=== PATIENT | female | born 1955 | race Caucasian/White ===

== ENCOUNTER 2018-04-05 03:10 | Inpatient (IN) | payer OTHER ==
[~2018-04-05] VITALS: Ht 157.4 cm; Wt 87.3 kg
--- NOTE | ~2018-04-05 | EKG ---
[place], [place] ELECTROCARDIOGRAM REPORT NAME: RISHI FALL UNIT #: [id number] ROOM: 411 DOCTOR: CRISTIANA DRAFT REPORT BIRTHDATE: [birth year] [facility] Test Date: 2018-04-05 Test Time: 03:40:01 Pat Name: RISHI FALL Department: Room: 411 Gender: F Chemist Pharmaceutical: Jonathan Pinzon : 1955 Requested By: KENYON MAHAJAN Order Number: [id number] Reading MD: Hi Cavanaugh MD Measurements Intervals [place] Rate: 76 P: 64 NM: 167 QRS: 43 QRSD: 103 T: 57 QT: 389 QTc: 438 Interpretive Statements Sinus rhythm Probable left atrial enlargement Electronically Signed On 04-05-2018 12:05:23 PST by Hi Cavanaugh MD CM:EKGRPT:ELECTROCARDIOGRAM REPORT [id number] KENYON MAHAJAN MD EPIPHANY DRAFT REPORT KENYON MAHAJAN MD
[2018-04-05 03:13] VITALS: BP 127/73
[2018-04-05 03:55] LABS: BASO # 0.1 10*3/uL (0.0-0.1); BASO % 0.5 % (0.0-1.0); EOS # 0.2 10*3/uL (0.0-0.4); EOS % 1.5 % (1.0-4.0); HEMATOCRIT 44.5 % (37.0-47.0); HEMOGLOBIN 14.1 g/dl (12.0-16.0); LYMPH # 1.9 10*3/uL (1.3-4.4); LYMPH % 14.4 % (27.0-41.0); MEAN CELL VOLUME 90.8 fl (81.0-99.0); MEAN CORPUSCULAR HGB 28.8 pg (27.0-31.0); MEAN CORPUSCULAR HGB CONC 31.7 g/dl (33.0-37.0); MEAN PLATELET VOLUME 10.8 fl (9.6-12.3); MONO # 0.7 10*3/uL (0.1-1.0); MONO % 5.4 % (3.0-9.0); NEUT # 10.1 10*3/uL (2.3-7.9); NEUT % 77.7 % (47.0-73.0); PLATELET COUNT AUTOMATED 237 10*3/uL (130-400); RED CELL DISTRI WIDTH 13.8 % (0-14.5)
[2018-04-05 04:06] LABS: ACT PARTIAL THROMBO TIME 20.8 SECONDS (20.8-31.5); INTERNATIONAL NORM RATIO 0.9 (2.0-3.5)
[2018-04-05 04:13] LABS: BILIRUBIN NEGATIVE (NEGATIVE); BLOOD NEGATIVE (NEGATIVE); CLARITY CLEAR (CLEAR); COLOR YELLOW (YELLOW); GLUCOSE NEGATIVE (NEGATIVE); KETONE NEGATIVE (NEGATIVE); LEUKO ESTERASE 1+ (NEGATIVE); NITRITE NEGATIVE (NEGATIVE); SPECIFIC GRAVITY <= 1.005 (1.005-1.030); UROBILINOGEN 0.2 E.U./dl (0.2-1.0)
[2018-04-05 04:21] LABS: ALBUMIN 3.7 gm/dl (3.1-4.5); ALKALINE PHOSPHATASE 106 U/L (45-117); BUN 22 mg/dl (7-24); CHLORIDE 101 mmol/L (98-107); CREATININE 0.84 mg/dL (0.55-1.02); LIPASE 90 U/L (73-393); POTASSIUM 3.8 mmol/L (3.5-5.1); SGOT/AST 18 IU/L (3-35); SGPT/ALT 32 U/L (12-78); SODIUM 137 mmol/L (136-145)
[2018-04-05 04:22] LABS: TROPONIN I < 0.015 ng/ml (<0.045)
[2018-04-05 05:35] VITALS: BP 154/87
--- NOTE | 2018-04-05 05:35 | NUR ---
A 62, admitted to , under the services of DAVINA Flores DO with a diagnosis of SYNCOPY. Chief complaint is C/O NOT FEELING RIGHT, FELT HOT, UNSURE OF WHAT HAPPENED- FOUND ON FLOOR. Patient arrived via CART from ER. Monitor applied. Initial assessment completed. Vital signs taken and recorded. DAVINA FLORES DO notified of admission to the unit. Orders received. See assessment for past medical history, medications and allergies. Patient and/or family oriented to unit. [facility] visitation policy reviewed. Clothing/patient valuable form completed. JULIET DODGE
[2018-04-05] MEDS ORDERED: SINGULAIR10 M1 PO (06:38)
[2018-04-05] MEDS ORDERED: [UNRECOGNIZED DRUG - REMARK] PO (06:39)
[2018-04-05] MEDS ORDERED: BREO ELLIPTA 11 EACH INH (06:41)
[2018-04-05] MEDS ORDERED: SPIRIVA18 MCG PO (06:42)
[2018-04-05] MEDS ORDERED: 24 HOUR ALLER15.8 ML NAS (06:45)
--- NOTE | 2018-04-05 07:51 | NUR ---
24 HR chart check completed.
[2018-04-05 08:00] VITALS: BP 130/60
--- NOTE | 2018-04-05 08:00 | NUR ---
Patient resting quietly with no c/o discomfort. Respirations easy and regular. Vital signs stable. No overt distress. GIOVANNY REIS
--- NOTE | 2018-04-05 11:36 | NUR ---
PHYSICAL THERAPY PT EVAL COMPLETED TODAY: FULL EVALUALTION TO FOLLOW: RECOMMEND PT WHILE HERE TO ADDRESS DECREASED STRENGTH, BALANCE AND GAIT. PT EVAL IS MODERATE COMPLEXITY BASED ON CHART REVIEW, TEST RESULTS AND EVLAUATION: 53221. D/C RECOMMENDATIONS ARE HOME WITH HOME HEALTH ON D/C. THANK YOU FOR REFERRAL ABIMAEL BENÍTEZ PT
[2018-04-05 12:00] VITALS: BP 143/86
[2018-04-05 16:00] VITALS: BP 126/73
[2018-04-05] MEDS ORDERED: OXYGEN NAS (16:43)
[2018-04-05] MEDS ORDERED: PROAIR HFA8.5 GM INH (16:44)
--- NOTE | 2018-04-05 19:23 | NUR ---
SITTING UP IN BED WATCHING TV. DENIES ANY NEEDS OR CONCERNS AT THIS TIME. BED IS IN LOWEST POSTIION WITH WHEELS LOCKED. CALL LIGHT IS WITHIN REACH. ENCOURAGED TO USE CALL LIGHT FOR NEEDS.
[2018-04-05 20:00] VITALS: BP 126/73
--- NOTE | 2018-04-05 21:00 | NUR ---
PRN RESTORIL GIVEN FOR COMPLAINTS OF INSOMNIA. WILL EVALUATE EFFECTIVENESS.
--- NOTE | 2018-04-05 22:06 | NUR ---
PRN RESTORIL APPEARS TO BE EFFECTIVE. RESTING IN BED WITH EYES CLOSED. RESPIRATIONS ARE EASY AND REGULAR. NO DISTRESS IS NOTED.
[2018-04-06] VITALS: BP 141/88
--- NOTE | 2018-04-06 01:14 | NUR ---
RESTING IN BED WITH EYES CLOSED. RESPIRATIONS ARE EASY AND REGULAR. NO DISTRESS IS NOTED. CALL LIGHT IS WITHIN REACH.
[2018-04-06 05:40] LABS: BUN 16 mg/dl (7-24); CHLORIDE 111 mmol/L (98-107); CREATININE 0.72 mg/dL (0.55-1.02); POTASSIUM 4.1 mmol/L (3.5-5.1); SODIUM 142 mmol/L (136-145)
[2018-04-06 05:45] LABS: FREE T4 0.94 ng/dl (0.76-1.46)
[2018-04-06 06:14] LABS: BASO # 0.1 10*3/uL (0.0-0.1); BASO % 0.7 % (0.0-1.0); EOS # 0.3 10*3/uL (0.0-0.4); EOS % 3.9 % (1.0-4.0); HEMATOCRIT 42.5 % (37.0-47.0); HEMOGLOBIN 13.5 g/dl (12.0-16.0); LYMPH # 2.6 10*3/uL (1.3-4.4); LYMPH % 30.3 % (27.0-41.0); MEAN CORPUSCULAR HGB 28.9 pg (27.0-31.0); MEAN CORPUSCULAR HGB CONC 31.8 g/dl (33.0-37.0); MEAN PLATELET VOLUME 11.4 fl (9.6-12.3); MONO # 0.7 10*3/uL (0.1-1.0); MONO % 8.3 % (3.0-9.0); NEUT # 4.9 10*3/uL (2.3-7.9); NEUT % 56.5 % (47.0-73.0); PLATELET COUNT AUTOMATED 235 10*3/uL (130-400); RED BLOOD COUNT 4.67 10*6/uL (4.10-5.10); RED CELL DISTRI WIDTH 14.2 % (0-14.5); WHITE BLOOD COUNT 8.7 10*3/uL (4.8-10.8)
[2018-04-06 08:00] VITALS: BP 120/60
--- NOTE | 2018-04-06 08:07 | NUR ---
24 HR chart check completed. Patient resting quietly with no c/o discomfort. Respirations easy and regular. Vital signs stable. No overt distress. GIOVANNY REIS
[2018-04-06 12:00] VITALS: BP 128/88
[2018-04-06 16:00] VITALS: BP 143/78
--- NOTE | 2018-04-06 16:00 | NUR ---
Patient resting quietly with no c/o discomfort. Respirations easy and regular. Vital signs stable. No overt distress. GIOVANNY REIS
--- NOTE | 2018-04-06 18:21 | NUR ---
DR CACERES STATES OK TO REMOVE CM FOR SHOWER.
--- NOTE | 2018-04-06 19:18 | NUR ---
RESTING IN BED AT THIS TIME. PATIENT STATES "I FEEL MUCH BETTER AFTER I GOT A GOOD NIGHTS SLEEP" ALSO EXPLAINED THAT SHE WAS "HAPPY" SHE WAS ABLE TO SHOWER TODAY. CURRENTLY DENIES ANY NEEDS OR CONCERNS. BED IS IN LOWEST POSITION WITH WHEELS LOCKED. CALL LIGHT IS WITHIN REACH. ENCOURAGED TO USE CALL LIGHT FOR NEEDS. WILL CONTINUE TO MONITOR.
[2018-04-06 20:00] VITALS: BP 133/76
--- NOTE | 2018-04-06 21:13 | NUR ---
PRN RESTORIL GIVEN FOR COMPLAINTS OF INSOMNIA. WILL EVALUATE EFFECTIVENESS.
--- NOTE | 2018-04-06 22:38 | NUR ---
PRN RESTORIL APPEARS TO BE EFFECTIVE. PATIENT RESTING IN BED WITH EYES CLOSED. RESPIRATIONS ARE EASY AND REGULAR. NO DISTRESS IS NOTED. CALL LIGHT IS WITHIN REACH. WILL CONTINUE TO MONITOR.
[2018-04-07] VITALS: BP 141/67
[2018-04-07 08:00] VITALS: BP 140/80
--- NOTE | 2018-04-07 08:00 | NUR ---
Patient resting quietly with no c/o discomfort. Respirations easy and regular. Vital signs stable. No overt distress. GIOVANNY REIS
--- NOTE | 2018-04-07 08:29 | NUR ---
PT IS AWAKE AND ALERT. PATIENT IS NOT ORTHOSTATIC SHE HAS A DIFFERANCE OF 20 BUT AN INCREASE NOT DECREASE. PATIENT TO HAVE ECHO NONE THEN MAY BE GOING HOME GIVEN CALL LIGHT AND BED IN LOWEST POSITION AND LOCKED. [address] SPNATALY[facility]
--- NOTE | 2018-04-07 09:00 | NUR ---
[employer] Consultant in to talk to patient. Patient states lives at home with family. There are few steps in the home. Physician: out of town [facility]acy: [facility] Home health services: none Patient's level of ADLs: INDEPENDENT Patient has working utilities: all working DME: none Follow-up physician's appointment after d/c: will be made by hospitalist nurse director upon discharge Does patient want to access PORTAL?: no Discharge plan discussed with patient, patient states she lives at home, is independent in adls and ambulation, patient was at a local casino when she became ill. patient states she will be going home when able and denies any home needs. PRINCE DAVALOS
--- NOTE | 2018-04-07 10:33 | NUR ---
PATIENT HAD ECHO DONE RN IS TRYING TO GET AHOLD OF TO GET DISCHARGE PAPERS SO PATIENT CAN GO HOME. PATEINT WAS TAKEN OFF MONITOR AND IV IS OUT. PATIENT GIVEN CALL LIGHT AND BED IS LOCKED AND IN LOWEST POSITION. [address] [facility]
--- NOTE | 2018-04-07 11:15 | NUR ---
Discharge instructions reviewed with patient/family. Patient receptive and verbalizes understanding. Follow-up care arranged. Written instructions given to patient/family BRIEN LAMBERT
--- NOTE | 2018-04-07 11:40 | NUR ---
LEAVING, AMBULATORY IN CARE OF .
--- NOTE | 2018-04-07 11:47 | NUR ---
PATIENT WAS DISCHARGED BED STRIPED BY AID WHILE I WALKED PATIENT TO [facility]. [address] [facility]
== END 2018-04-07 11:40 | disposition home or self-care (01) | DRG 312 ==
LOC: ED 03:10 → 4E 05:07 → EDHOLD 05:07 → 4E 05:53
PROVIDERS: Emergency Medicine Emergency Medical Services; Family Medicine; ADMIT Emergency Medicine
DX: I95.1 Orthostatic hypotension (principal); N39.0 Urinary tract infection, site not specified; R65.10 Systemic inflammatory response syndrome (SIRS) of non-infectious origin without acute organ dysfunction; I11.9 Hypertensive heart disease without heart failure; J44.9 Chronic obstructive pulmonary disease, unspecified; M06.9 Rheumatoid arthritis, unspecified; M79.7 Fibromyalgia; M48.061 Spinal stenosis, lumbar region without neurogenic claudication; M25.561 Pain in right knee; Z99.81 Dependence on supplemental oxygen; Z87.891 Personal history of nicotine dependence; Z80.1 Family history of malignant neoplasm of trachea, bronchus and lung; Z83.79 Family history of other diseases of the digestive system; Z79.899 Other long term (current) drug therapy